=== PATIENT | male | born 1955 | race African-American/Black ===

== ENCOUNTER 2018-08-30 08:00 | Day surgery (SDC) | payer OTHER, MEDICAID, SELFPAY ==
--- NOTE | 2018-08-30 | PATH_ITS ---
[facility] Accession Number: [id number] . 01 Material submitted: . PROXIMAL RIGHT COLON POLYP . 02 Diagnosis: Proximal Right Colon Polyp: Tubular adenoma. MRV/08/31/2018 . 02 Electronically signed: . Kar Elizabeth MD, PhD, Pathologist NPI- [id number] . 01 Gross description: . Received one formalin-filled container labeled with the patient's name and labeled proximal RT colon polyp. The specimen consists of a 0.2 cm portion of tissue, entirely submitted in one cassette. ([id number]) /FRR . 02 Pathologist provided ICD-10: D12.6 . 02 CPT . 573289 Performed at: 01 [facility] [address] [id number] MD Mohinder Mcgill MD Phone: [phone] Performed at: 02 [facility] [address] [place], [place] [id number] MD Lorene Manzo MD Phone: [phone]
[2018-08-30 08:36] VITALS: BMI 27.8
[2018-08-30 08:44] VITALS: BP 137/89; PULSE 71; RESP 15; TEMP 36.6; O2SAT 96
[2018-08-30] MEDS: SODIUM CHLORIDE 0.9% 1,000 ML 21 ML IV (08:47)
--- NOTE | 2018-08-30 10:07 | PM.HP.1 ---
History of Present Illness Date Patient Seen: 08/30/18 Time Patient Seen: 10:08 Chief complaint: [id number] Narrative: Mr. Melchor is a pleasant 62-year-old gentleman who presents for screening colonoscopy. He has a personal history of colon polyps. His last colonoscopy at our facility was in 2008 and at that time he had 2 adenomatous polyps removed. Sometime after that he had another colonoscopy done at [facility] and had 2 more polyps removed there. He thinks that was 5 or 6 years after his last 1 so probably around 2013 or 2014. He was told to have a repeat colonoscopy in 3 years after that study. He denies any new problems or symptoms related to the function of his GI tract. He reports he is in his usual state of health today. Patient History Family & Social History Family History: Reviewed 08/30/18 by Yamileth Solorzano MD Meds Home Medications Medication Instructions Recorded Confirmed Type latanoprost 1 drp EYE-BOTH DAILY 08/30/18 08/30/18 History timolol 1 drp EYE-BOTH BID 08/30/18 08/30/18 History Allergies Allergy/AdvReac Type Severity Reaction Status Date / Time doxycycline [DOXYCYCLINE] Allergy Mild unknown Verified 08/30/18 08:33 Review of Systems Review of Systems All systems reviewed & are unremarkable except as noted in HPI and below Exam Vital Signs (past 8 hours): - 08/30/18 08:44 Temperature 97.8 F Pulse Rate 71 Respiratory Rate 15 Blood Pressure 137/89 Pulse Oximetry 96 Oxygen Delivery Method Room Air Narrative Exam Narrative: Pleasant well-nourished well-developed man in no obvious distress HEENT: Normocephalic atraumatic, pupils equal round reactive to light accommodation with anicteric sclera Lungs: Clear to auscultation bilaterally Heart: Regular rate and rhythm without murmur rub or gallop Abdomen: Soft, nontender, active bowel sounds Extremities: Warm well perfused and without edema. Assessment & Plan Plan: Assessment/Plan Narrative: Pleasant 62-year-old gentleman with personal history of colon polyps. We discussed the risks and benefits of colonoscopy and he has expressed a desire to complete the procedure today.
[2018-08-30] MEDS: fentaNYL 250 MCG/5 ML INJ IV (10:22)
[2018-08-30] MEDS: MIDAZOLAM 5 MG/5 ML VIAL IV (10:22)
[2018-08-30 10:43] VITALS: BP 121/75; PULSE 74; RESP 16; TEMP 37; O2SAT 96
--- NOTE | 2018-08-30 10:47 | PM.OP.1 ---
Operative Date/Time/Diagnoses Date of procedure: 08/30/18 Time of procedure: 10:47 Pre-op diagnosis: Personal history of colon polyp Post-op diagnosis: same Procedure & Clinicians Procedure: Colonoscopy to the cecum with polypectomy x1 Same procedure as scheduled: Yes Indications: Last colonoscopy approximately 3 years ago Surgeon: Yamileth Solorzano Click Yes if Unassisted: Yes Anesthesia Type: Sedation (Versed 4 mg; fentanyl 150 mcg) Operative Notes Findings: 1. Excellent prep 2. A single 1-2 mm polyp in the proximal right colon. This may also have been a simple mucosal irregularity. Removed with cold forceps and retained for pathology. 3. Very minimal diverticulosis 4. Grade 3 internal hemorrhoids. Closure Type: not applicable Specimen(s): other (Mucous irregularity in the proximal right colon) Estimated Blood Loss (mL): 1 Procedure in detail: After obtaining informed consent, the patient was brought to the GI suite and placed in the left lateral decubitus position on the examination table. After placement of appropriate monitors, the patient was given incremental doses of Versed and Fentanyl until an appropriate level of sedation was achieved. A time out was held per [facility]AP protocol. A digital rectal examination was performed and did not reveal any masses or obstructing lesions. The colonoscope was gently passed into the patient's anus and the entire colon navigated to the level of the cecum with minimal difficulty. Once in the cecum, the scope was withdrawn being sure to go before and beyond all mucosal folds and prominences and get an excellent examination. The findings are noted above. At the level of the rectal vault, the scope was retroflexed and the internal anal canal was examined. The scope was straightened and air aspirated from the colon. The instrument was removed from the patient's body and the procedure was concluded. The patient was allowed to awaken from sedation without difficulty and taken to the post-anesthesia care unit in good condition. Total sedation time was 27 min Total withdrawal time was 19 min 22 sec Complications: none Condition: stable Disposition: PACU Plan for aftercare: 1. Discharge to home 2. Plan for next colonoscopy in 5 years
[2018-08-30 10:48] VITALS: BP 105/85; PULSE 75; RESP 10; O2SAT 96
[2018-08-30 10:53] VITALS: BP 124/74; PULSE 76; RESP 9; O2SAT 95
[2018-08-30 10:58] VITALS: BP 116/78; PULSE 68; RESP 12; O2SAT 96
[2018-08-30 11:27] VITALS: BP 126/78; PULSE 61; RESP 15; TEMP 36.5; O2SAT 97
== END 2018-08-30 11:42 | disposition home or self-care (01) ==
PROVIDERS: PCP Family Medicine; Visit Provider Surgery
PROC: 0DJD8ZZ Inspection of Lower Intestinal Tract, Via Natural or Artificial Opening Endoscopic (ICD-10-PCS; CPT 45378; principal; 2018-08-30 08:45)
DX: Z86.010 Personal history of colon polyps (principal); K57.30 Diverticulosis of large intestine without perforation or abscess without bleeding; K64.2 Third degree hemorrhoids; D12.6 Benign neoplasm of colon, unspecified
CPT/HCPCS: 45380; 88305; 99152; 99153; J2250; J3010

== ENCOUNTER → 2019-05-10 11:39 | Outpatient (CLI) | payer OTHER, MEDICAID, SELFPAY ==
[2019-05-10 12:48] LABS: Blood Urea Nitrogen 12 mg/dL (9-20); Calcium 9.3 mg/dL (8.4-10.2); Carbon Dioxide 28 mmol/L (22-32); Chloride 105 mmol/L (98-107); Cholesterol 172 mg/dL (140-199); Estimated Glomerular Filt Rate > 60.0 mL/min (>60); Glucose 94 mg/dL (80-110); HDL Cholesterol 31 mg/dL (40-60); HEMOLYSIS < 15 (0-50); LDL Cholesterol Calculated 107 mg/dL (<100); Potassium 4.7 mmol/L (3.4-5.1); Sodium 141 mmol/L (137-145); Triglycerides 172 mg/dL (35-150)
[2019-05-10 13:14] LABS: Prostate Specific Antigen Scrn 0.823 ng/mL (0.1-4.0)
[2019-05-10 15:16] LABS: Vitamin D 25 Hydroxy (D3) 25.3 ng/mL (30.0-100.0)
== END ==
PROVIDERS: PCP Student in an Organized Health Care Education/Training Program; Visit Provider Student in an Organized Health Care Education/Training Program
DX: E58 Dietary calcium deficiency (principal); F41.9 Anxiety disorder, unspecified; Z12.5 Encounter for screening for malignant neoplasm of prostate; E55.9 Vitamin D deficiency, unspecified; E78.2 Mixed hyperlipidemia
CPT/HCPCS: 36415; 80048; 80061; 82306; G0103